=== PATIENT | female | born 1985 | race Caucasian/White ===

== ENCOUNTER 2016-09-03 23:28 | Emergency (ER) | payer SELFPAY ==
[~2016-09-03 23:28] MED LIST: BETAMETHASONE D15 GM; CATAPRES0.1 MG PO; CORTISPORIN EAR10 M LEFT EAR; GUIATUSS AC SY120 ML PO; IMPLANON68 MG/IMPL SQ; ZITHROMAX250MG Z-PAK PO
[2016-09-03] MEDS ORDERED: VITAFOL-OB+DHA1 EACH PO (23:53)
[2016-09-03] MEDS ORDERED: GLUCOPHAGE500 M3 PO (23:53)
[2016-09-04 00:45] LABS: BASO % 0.5 % (0-2); EOSINOPHIL ABSOLUTE COUNT 0.3 tho/cmm (0.0-0.7); HCT-HEMATOCRIT 39.9 % (34.0-49.0); HGB-HEMOGLOBIN 14.1 gm/dl (12.0-15.5); IMMATURE GRANULOCYTES ABSOLUTE 0.01 tho/cmm (0-0.03); IMMATURE GRANULOCYTES PERCENT 0.1 % (0-0.3); LYMPH % 42.2 % (20-45); LYMPH ABSOLUTE COUNT 3.3 tho/cmm (0.8-4.5); MCH (MEAN CORPUSCULAR HGB) 31.3 pg (28.0-32.0); MCHC MEAN CORPUSCULAR HGB CONC 35.3 % (32.0-36.0); MCV (MEAN CELL VOLUME) 88.5 fl (82.0-96.0); MEAN PLATELET VOLUME 9.3 cmc (9.4-12.4); MONO % 4.9 % (0-12); MONOCYTE ABSOLUTE COUNT 0.4 tho/cmm (0.0-1.2); NEUTROPHIL ABSOLUTE COUNT 3.7 tho/cmm (1.6-8.0); NEUTROPHIL-AUTOMATED 3.7 tho/cmm (1.6-8.0); NEUTROPHILS % 48.3 % (40-80); PLATELET COUNT 325 tho/cmm (150-450); RED BLOOD COUNT 4.51 mil/cmm (4.00-5.20); WHITE BLOOD COUNT 7.7 tho/cmm (4.0-10.0)
== END 2016-09-04 02:28 ==
LOC: EDMED 23:28
PROVIDERS: Emergency Medicine
DX: N93.9 Abnormal uterine and vaginal bleeding, unspecified (principal); E11.9 Type 2 diabetes mellitus without complications; Z79.899 Other long term (current) drug therapy
CPT/HCPCS: J2791